=== PATIENT | female | born 1945 ===

== ENCOUNTER 2022-08-08 07:24 | Day surgery (SDC) | payer MEDICARE ==
[~2022-08-08 07:24] MED LIST: Lactated Ringers 1,000 ML IV SCH; Lidocaine 1%/Sod Bicarbonate in NS 8.4% 1 ML Syringe IDERM PRN; Sodium Chloride 0.9% 10 ML Syringe FLUSH PRN; Sodium Chloride 0.9% 10 ML Syringe FLUSH SCH
[2022-08-08] MEDS ORDERED: Lactated Ringers 1,000 ML IV SCH (07:30)
[2022-08-08] MEDS ORDERED: Ondansetron 4 MG/2 ML SDV IVPUSH PRN (07:43)
[2022-08-08] MEDS ORDERED: Midazolam 1 MG/ML 2 ML SDV ONE (07:48)
[2022-08-08] MEDS ORDERED: Propofol 200 MG/20 ML SDV ONE ×2 (07:49→08:50)
[2022-08-08] MEDS ORDERED: Lidocaine 1% 2 ML ONE (07:49)
== END 2022-08-08 09:55 | disposition home or self-care (01) ==
LOC: JD.SDS 07:24
PROVIDERS: ATTEND Surgery
DX: Z12.11 Encounter for screening for malignant neoplasm of colon (principal); E03.9 Hypothyroidism, unspecified; M81.0 Age-related osteoporosis without current pathological fracture; J35.8 Other chronic diseases of tonsils and adenoids; D69.6 Thrombocytopenia, unspecified; E78.5 Hyperlipidemia, unspecified; R73.03 Prediabetes; R60.0 Localized edema; Z98.51 Tubal ligation status; E78.00 Pure hypercholesterolemia, unspecified; E66.9 Obesity, unspecified; Z79.899 Other long term (current) drug therapy; Z88.2 Allergy status to sulfonamides; Z90.49 Acquired absence of other specified parts of digestive tract; Z79.890 Hormone replacement therapy; Z68.27 Body mass index [BMI] 27.0-27.9, adult
CPT/HCPCS: 45378; J2250; J2704; J7120; J3490